=== PATIENT | female | born 1960 | race Caucasian/White ===

== ENCOUNTER 2021-10-06 05:27 | Day surgery (SDC) | payer OTHER ==
[~2021-10-06] VITALS: Ht 150 cm; Wt 54.0 kg
[~2021-10-06 05:27] MED LIST: ACYCLOVIR400 MG PO; ATORVASTATIN CA20 MG PO; ESTRADIOL CREAM VG; HCTZ25 MG PO; IBUPROFEN200 M1 PO; LISINOPRIL30 MG PO; OMEPRAZOLE40 MG PO; SERTRALINE HCL100 MG PO; VENTOLIN HFA18 GM INH
[2021-10-07 06:30] LABS: BASOPHIL 0.7 % (0-2); EOSINOPHIL 0.3 % (0-5); HCT 36.3 % (37.0-47.0); HGB 11.4 g/dl (12.5-16.0); LYMPHOCYTE 13.3 % (15-48); MCH 29.8 pg (25.0-31.0); MCHC 31.4 g/dL (32.0-36.0); MCV 94.8 fL (78.0-100.0); MONOCYTE 9.8 % (0-12); MPV 10.5 fL (6.0-9.5); NEUTROPHIL 75.6 % (41-80); NRBC 0; PLT 159 K/uL (150-400); RBC 3.83 M/uL (4.20-5.40); RDW 13.7 % (11.5-14.0); WBC 7.6 K/uL (4.0-10.5)
[2021-10-07 06:57] LABS: BUN/CREAT RATIO (CALC) 13.5 RATIO; CREATININE 0.74 mg/dL (0.51-0.95); POTASSIUM 4.4 mmol/L (3.5-5.1)
[2021-10-07] MEDS ORDERED: NORCO 5-325 TA1 EACH PO ×2 (08:41→14:43)
[2021-10-07] MEDS ORDERED: FEOSOL325 MG PO ×2 (08:41→14:43)
[2021-10-07] MEDS ORDERED: XARELTO10 MG PO ×2 (08:41→14:43)
[2021-10-07] MEDS ORDERED: ONDANSETRON HCL4 MG PO ×2 (08:43→14:43)
== END 2021-10-07 12:34 | disposition home or self-care (01) ==
LOC: FAS 05:27 → FMS 08:44 → FAS 10-07 12:34
PROVIDERS: Legal Medicine
DX: M17.12 Unilateral primary osteoarthritis, left knee (principal); M21.162 Varus deformity, not elsewhere classified, left knee; M71.22 Synovial cyst of popliteal space [Baker], left knee; G89.18 Other acute postprocedural pain; I10 Essential (primary) hypertension; E78.5 Hyperlipidemia, unspecified; R00.0 Tachycardia, unspecified; F17.200 Nicotine dependence, unspecified, uncomplicated; F32.A Depression, unspecified; Z88.1 Allergy status to other antibiotic agents; Z88.2 Allergy status to sulfonamides; Z88.5 Allergy status to narcotic agent; Z79.899 Other long term (current) drug therapy
CPT/HCPCS: 36415; 73560; 80048; 85025; 86850; 86900; 86901; 94760; 97110; 97162; 97165; 97530-GP; C1713; C1776; J0171; J0697; J1100; J1170; J1885; J2250; J2405; J2704; J2795; J3010; J7120